=== PATIENT | female | born 1965 | race Caucasian/White ===

== ENCOUNTER 2024-05-05 00:28 | Day surgery (SDC) | payer OTHER, SELFPAY ==
[2024-05-04 11:55] VITALS: BMI 37.5
--- NOTE | 2024-05-04 12:11 | PC.NURSE ---
Report to the Outpatient Waiting Room, entrance under the green pavilion located off [facility], at time ___8:00AM____ on date ___05/05/24____. Planned Procedure Time: __10:00AM .? Time changes happen often and if your time is changed the preop area will call you the afternoon before. - You and your visitor will be asked to self-screen and do not enter if you have any COVID symptoms. Please call surgeon if you need to reschedule. - A mask is optional within the hospital at this time. Patients may have clear liquids (water, carbonated beverages, clear teas, apple juice) until 3 hours prior to surgery with a maximum of 20 ounces. - No food from midnight until time of surgery and no smoking - Infants may have breast milk until 4 hours before surgery, formula 6 hours prior to surgery. - Children will be allowed to drink immediately following surgery.? If applicable, please bring a bottle or sippy cup to assist with drinking. Juice, water, soda, and popsicles are readily available.? For infants on formula, please bring formula the day of surgery.? Pacifiers are allowed. Take only the following medications with a SIP of water on the morning of surgery: NONE DO NOT STOP ANY OF YOUR OTHER PRESCRIPTION MEDICATIONS PRIOR TO SURGERY EXCEPT THE FOLLOWING Medications to discontinue per physician ___HOLD ALL VITAMINS/SUPPLEMENTS STARTING NOW, PER ANESTHESIA Date to take last dose 05/04/24 Please no make-up, nail japanese, hairspray, perfume, deodorant, or body powder the day of surgery.? No jewelry (including any body piercings) or valuables the day of surgery, leave them at home.? Please take a shower or bath the night before, or the morning of, surgery with an antibacterial soap.? Wear comfortable, loose fitting clothing.? Children are encouraged to wear pajamas. - Jewelry must be removed prior to entering the operating room.? Rings and piercings that are not removed may be cut off. - The hospital will not accept responsibility for valuables.? - Please leave all valuables, including medications, at home the day of surgery. If you are going home after surgery, a licensed company tanker truck driver must drive you home.? - NO public transportation without another adult if you receive anesthesia. - We recommend that an adult stay with you for 24 hours following discharge. - We also recommend that you do not drive, make important decision, drink alcoholic beverages, or take any drugs that were not prescribed by your health care provider for at least 24 hours after your discharge time. For Pediatric surgeries, we recommend two adults accompany the child home. Follow any additional instructions given to you from your surgeon. Telephone instructions given to ____PATIENT and asked if any additional questions and then verbalized understanding. Patient advised to call surgeon office or pre surgery nurse liaison [phone] if any additional questions.
--- NOTE | 2024-05-05 06:53 | WPDHPUPDATE1 ---
History and Physical Update Update Date/Time: 05/05/24 06:53 History and Physical has been reviewed, including an updated exam of the patient. There are NO changes in the patient's condition. Risks, benefits, and alternatives have been discussed and questions answered. Patient agrees to proceed with procedure.
--- NOTE | 2024-05-05 06:55 | P.HP_ITS ---
H&P: HPI History of Present Illness Date/Time: 05/05/24 06:55 Chief Complaint: Uterine polyp and irregular bleeding Narrative: 58-year-old female with uterine polyp seen on office hysteroscopy she is admitted for hysteroscopy polypectomy as well as D&C risks and benefits were reviewed [facility] [place] Social History Social History Smoking packs per day: 1 Smoking cigarettes per day: 20.0 Years smoked: 25 Smoking pack-years: 25.00 Smoking status: Former smoker Tobacco type: cigarettes Smoking end date: 01/16/98 Alcohol intake: current Drinks per week: 2 Living arrangements: with family Additional living arrangements comments: SPOUSE Spiritual care concerns: No Meds Home Medications and Allergies Home Medications Medication Instructions Recorded Confirmed Type ascorbic acid (vitamin C) 1,000 mg 1 g PO DAILY 05/04/24 05/04/24 History tablet cholecalciferol (vit D3) 1,000 1 tablet PO DAILY 05/04/24 05/04/24 History unit-vitamin K2 (MK4) 100 mcg tablet cod liver oil 1 cap PO DAILY 05/04/24 05/04/24 History cyanocobalamin (vitamin B-12) 1,000 mcg PO DAILY 05/04/24 05/04/24 History 1,000 mcg tablet furosemide 20 mg tablet 20 mg PO QAM 05/04/24 05/04/24 History hydroxychloroquine 200 mg tablet 200 mg PO DAILY 05/04/24 05/04/24 History magnesium 200 mg tablet 200 mg PO DAILY 05/04/24 05/04/24 History multivitamin 1 tablet PO DAILY 05/04/24 05/04/24 History progesterone micronized 200 mg 200 mg PO DAILY 05/04/24 05/04/24 History capsule Allergies Allergy/AdvReac Type Severity Reaction Status Date / Time No Known Allergies Allergy Verified 05/04/24 11:50 Exam Const: General: cooperative, healthy appearing and comfortable Nutritional Appearance: average body habitus Orientation/consciousness: oriented to person, oriented to place and oriented to time HENMT: Head: normal to inspection Resp: Effort & Inspection: normal respiratory effort Cardio: Rate: regular rate Rhythm: regular rhythm Heart sounds: S1 normal heart sound present and S2 normal heart sound present GI: Inspection: normal to inspection : External Female Exam: normal external appearance Speculum Exam - Vagina: normal appearance of the vagina Speculum Exam - Cervix: normal appearance of the cervix Bimanual exam- vagina & uterus: enlarged Bimanual Exam- Adnexa, other: normal adnexae Assessment and Plan Assessment and plan (1) Bleeding: Code(s): R58 - Hemorrhage, not elsewhere classified Status: Acute (2) Uterine polyp: Code(s): N84.0 - Polyp of corpus uteri Status: Acute Assessment and Plan: hysteroscopy/polypectomy / dilatation curettage
[2024-05-05 08:30] VITALS: BP 131/74; PULSE 56; RESP 14; TEMP 36.5; O2SAT 99
[2024-05-05 08:32] LABS: Hemoglobin 14.7 g/dL (12.0-15.0)
[2024-05-05] MEDS: ACETAMINOPHEN 500 MG TABLET 1000 MG PO (08:54)
[2024-05-05] MEDS: LACTATED RINGERS 1,000 ML 30 ML IV CONT (08:55)
[2024-05-05 09:07] LABS: Anion Gap 5 mmol/L (4-12); Blood Urea Nitrogen 18 mg/dL (7-17); Calcium 9.2 mg/dL (8.4-10.2); Carbon Dioxide 28 mmol/L (22-30); Chloride 104 mmol/L (98-107); Estimated CRCL calculation 91 ml/min; Estimated Glomerular Filt Rate > 60; Glucose 102 mg/dL (65-110); Potassium 3.9 mmol/L (3.4-5.0); Sodium 137 mmol/L (137-145)
[2024-05-05 09:29] VITALS: BMI 38.2
--- NOTE | 2024-05-05 10:03 | WPDANESEPPF ---
Anes - Initial Pre Proc Eval Procedure: Operation Date: 05/05/24 10:00 Proposed Procedures p Hysteroscopy Dilation and Curettage with Polypectomy - Marvin Klein MD Date/Time: 05/05/24 10:03 Surgeon: Marvin Klein MD Pre Op Diagnosis: Uterine Polyp, Irrg Bleeding Patient Data Age: 58 Gender: F Height: 1.57 m Weight: 94.7 kg Last Vital Signs Temp 97.7 F 05/05/24 08:30 Pulse 56 L 05/05/24 08:30 Resp 14 05/05/24 08:30 BP 131/74 05/05/24 08:30 Pulse Ox 99 05/05/24 08:30 O2 Del Method Room Air 05/05/24 08:30 Allergies Allergy/AdvReac Type Severity Reaction Status Date / Time No Known Allergies Allergy Verified 05/05/24 09:20 Home Medications Medication Instructions Recorded Confirmed Type ascorbic acid (vitamin C) 1,000 mg 1 g PO DAILY 05/04/24 05/04/24 History tablet cholecalciferol (vit D3) 1,000 1 tablet PO DAILY 05/04/24 05/04/24 History unit-vitamin K2 (MK4) 100 mcg tablet cod liver oil 1 cap PO DAILY 05/04/24 05/04/24 History cyanocobalamin (vitamin B-12) 1,000 mcg PO DAILY 05/04/24 05/04/24 History 1,000 mcg tablet furosemide 20 mg tablet 20 mg PO QAM 05/04/24 05/04/24 History hydroxychloroquine 200 mg tablet 200 mg PO DAILY 05/04/24 05/04/24 History magnesium 200 mg tablet 200 mg PO DAILY 05/04/24 05/04/24 History multivitamin 1 tablet PO DAILY 05/04/24 05/04/24 History progesterone micronized 200 mg 200 mg PO DAILY 05/04/24 05/04/24 History capsule Laboratory Tests 05/05/24 05/05/24 08:18 08:49 Hgb 14.7 g/dL (12.0-15.0) Hct 44.0 % (37.0-47.0) Sodium 137 mmol/L (137-145) Potassium 3.9 mmol/L (3.4-5.0) Chloride 104 mmol/L (98-107) Carbon Dioxide 28 mmol/L (22-30) Anion Gap 5 mmol/L (4-12) BUN 18 H mg/dL (7-17) Creatinine 0.60 L mg/dL (0.7-1.0) Estim Creat Clear Calc 91 ml/min Estimated GFR > 60 (59 - ) Glucose 102 mg/dL (65-110) Calcium 9.2 mg/dL (8.4-10.2) Patient hx anesthesia problems: none Family hx anesthesia problems: none Results Review: All pre-operative results and documents have been reviewed as part of the pre-operative evaluation. [facility] Social History Social History Smoking packs per day: 1 Smoking cigarettes per day: 20.0 Years smoked: 25 Smoking pack-years: 25.00 Smoking status: Former smoker Tobacco type: cigarettes Smoking end date: 01/16/98 Alcohol intake: current Drinks per week: 2 Living arrangements: with family Additional living arrangements comments: [facility]OUSE Spiritual care concerns: No Anes - Eval Final PreProcedure Day of Procedure 05/05/24 10:03 Patient weight: obese Heart: regular rate and rhythm Lungs: clear to auscultation Airway: Mallampati scale class II Neurological: alert and oriented Last oral intake: >/= 8 hours ASA classification: III Emergent: no Anesthetic plan: proceed Anesthesia type and monitoring: general GIVS and standard monitoring Results Review: All pre-operative results and documents have been reviewed as part of the pre-operative evaluation. Informed Consent: The patient's anesthetic plan and its attendant risks and benefits were discussed with the patient/family/POA. Questions were solicited and answers provided to the satisfaction of the patient/family/POA.
[2024-05-05] MEDS: LIDOCAINE HCL 1% LOCAL INJ 10 ML VIAL INFILTRATE (10:23)
--- NOTE | 2024-05-05 10:32 | W.PM.PROC2 ---
Procedure Note - Detailed Date of Procedure 05/05/24 Pre-op Diagnosis Uterine Polyp, Irrg Bleeding Post-op Diagnosis Same Procedure Performed Hysteroscopy / dilatation curettage/polypectomy Surgeon Marvin Klein MD Anesthesia MAC and Local Indications 30 58-year-old female with the uterine polyp in excessive heavy bleeding Findings uterus sounded to 9cm. Moderate-sized polyp was seen. Description of Procedure Patient prepped draped in normal sterile fashion placed in the dorsal lithotomy position. Under excellent IV sedation weighted speculum placed in posterior with point cc % 2 is serial dilatation performed followed passes the 5mm visualizing hysteroscope saline as visualizing. Uterine polyp was seen. The reticulating instrument was passed through and the polyp was removed in toto the uterus was scraped over the entire 360? the specimens were sent together the instruments withdrawn. The patient was awakened went recovery in satisfactory condition. All sponge, needle, instrument counts were correct. There were no immediate complications Estimated Blood Loss 5 Drains No Packing No Pathology Yes Complications No immediate complications Condition Stable Disposition PACU
[2024-05-05 10:40] VITALS: BP 100/47; PULSE 62; RESP 14; O2SAT 100
[2024-05-05 11:10] VITALS: BP 127/70; PULSE 50; RESP 14
== END 2024-05-05 11:29 | disposition home or self-care (01) ==
PROVIDERS: Anesthesiology; Visit Provider Obstetrics & Gynecology
PROC: 0U5B8ZZ Destruction of Endometrium, Via Natural or Artificial Opening Endoscopic (ICD-10-PCS; CPT 58563; principal; 2024-05-05 10:00)
DX: N84.0 Polyp of corpus uteri (principal); E66.9 Obesity, unspecified; Z68.38 Body mass index [BMI] 38.0-38.9, adult; Z87.891 Personal history of nicotine dependence
CPT/HCPCS: 58558; 36415; 80048; 85014; 85018; 88305; A9270; J1100; J2003; J2250; J2405; J2704; J3010; J7120